=== PATIENT | female | born 1940 | race Caucasian/White ===

== ENCOUNTER → 2016-10-20 | Day surgery (SDC) | payer MEDICARE, BC ==
[2016-10-15 09:45] VITALS: BMI 30.9
[~2016-10-20] MED LIST: BSS 500 ml-Vancomycin 10 mg-Phenylephrine 1 mg Irrigation IR ONE; CHONDROITIN SULFATE 0.5 ML/PFS INTRAOC ONE; DEXAMETHASONE 4 MG/ML VIAL IV PRN; DIAZEPAM 5 MG TAB PO PRN; FENTANYL 100 MCG/2 ML VIAL IV PRN; FENTANYL 100 MCG/2 ML VIAL ONE; HYDROCODONE 5 MG/ACETAMIN 325 MG TAB PO PRN; Hyaluronate Sodium (Provisc) 5.5 mg/0.55 ml syringe INTRAOC ONE; KETOROLAC TROMETH 30 MG/ML VIAL IV PRN; LABETALOL 20 MG/4 ML SYRINGE IV PRN; LR 1,000 ML IV ONE; LR 1,000 ML IV SCH; MIDAZOLAM 2 MG/2 ML VIAL ONE; NS 1,000 ML IV SCH; NS 250 ML IV SCH; ONDANSETRON HCL 4 MG/2 ML VIAL IV PRN; PHENYLEPHRINE 2.5% OPHTH SOLN 2 ML BOT OP EYE ONE; SCOPOLAMINE TRANSDERMAL PATCH TOP PRN; TETRACAINE 0.5% 2 ML OPHTH SOLN OP EYE ONE; TETRACAINE 0.5% 2 ML OPHTH SOLN OP EYE PRN; TROPICAMIDE 1% OPHTH SOLN 2 ML BOTTLE OP EYE ONE; Vancomycin 10 MG, Phenylephrine 1,000 MCG in Balanced Salt Solution 500 ML IO ONE; hydrALAZINE 20 MG/ML VIAL IV PRN
--- NOTE | 2016-10-20 10:38 | SC.ANESEVA ---
Anesthesia Eval & Plan ([facility]) - Providers Stated Procedure: right eye cataract surgery Surgeon:: Bonita Evangelista - Medications/Allergies Allergies: Allergies No Known Allergies Allergy (Verified 10/16/16 13:36) Home Medications: Home Medication List Aspirin [Anjali Children's Aspirin] 81 mg PO DAILY 10/15/16 [History] Biotin 1,000 mcg PO DAILY 10/15/16 [History] Calcium Carbonate [Tums] 1 tab PO TID PRN 10/15/16 [History] Chlorthalidone 25 mg PO DAILY 10/15/16 [History] Folic Acid/Multivit-Minerals [Women's Multivitamin Gummies] 200 mcg PO DAILY [History] Lisinopril [Zestril] 20 mg PO DAILY 10/15/16 [History] Metoprolol Succinate [Toprol Xl] 25 mg PO DAILY 10/15/16 [History] Metoprolol Succinate [Toprol Xl] 100 mg PO DAILY 10/15/16 [History] Pravastatin Sodium [Pravachol] 40 mg PO HS 10/15/16 [History] Spironolactone [Aldactone] 25 mg PO DAILY 10/15/16 [History] Turmeric Root Extract [Turmeric] 500 mg PO DAILY 10/15/16 [History] Current Medication List: Reviewed - Focused Physical Exam NPO since: after Midnight Mallampati: Class II Neck: Full Range of Motion Cardiovascular/Chest: Normal Respiratory: Lungs clear Prone to Motion Sickness: No Other: Diagnoses AGE-RELATED NUCLEAR CATARACT, RIGHT EYE (10/20/16) Allergies Allergy/AdvReac Type Severity Reaction Status Date / Time No Known Allergies Allergy Verified 10/16/16 13:36 Home Medications Medication Instructions Recorded Last Taken Type Aspirin [Anjali Children's Aspirin] 81 mg PO DAILY 10/15/16 Unknown History Biotin 1,000 mcg PO DAILY 10/15/16 Unknown History Calcium Carbonate [Tums] 1 tab PO TID PRN 10/15/16 Unknown History Chlorthalidone 25 mg PO DAILY 10/15/16 Unknown History Folic Acid/Multivit-Minerals 200 mcg PO DAILY 10/15/16 Unknown History [Women's Multivitamin Gummies] Lisinopril [Zestril] 20 mg PO DAILY 10/15/16 Unknown History Metoprolol Succinate [Toprol Xl] 25 mg PO DAILY 10/15/16 Unknown History Metoprolol Succinate [Toprol Xl] 100 mg PO DAILY 10/15/16 Unknown History Pravastatin Sodium [Pravachol] 40 mg PO HS 10/15/16 Unknown History Spironolactone [Aldactone] 25 mg PO DAILY 10/15/16 Unknown History Turmeric Root Extract [Turmeric] 500 mg PO DAILY 10/15/16 Unknown History Height and Weight Patient's height 5 ft 4 in Patient's weight 81.82 kg Weight (Calculated Kilograms) 81.820 BMI 30.9 - Anesthetic Plan Anesthesia Type: MAC ASA Class: 3 - Focused Review of Systems Cardiac History: Yes: Hx Hypertension, Hx Pacemaker, Hx Internal Defibrillator, Hx Cardia Arrhythmia, Hx Abnormal Cholesterol/Hyperlipidemia, Hx Congestive Heart Failure Respiratory: Yes: Hx Sleep Apnea (possible awaiting sleep study) Gastrointestinal: Yes: Hx Colonoscopy No: Hx Gastrointestinal Disorders Smoking Status: Never smoker Surgical History: Yes: T&A (1959)
[2016-10-20 10:53] VITALS: TEMP 97.6
--- NOTE | 2016-10-20 12:02 | HIMOPRPT ---
DATE OF PROCEDURE: 10/20/16 PREOPERATIVE DIAGNOSIS: Cataract right eye. POSTOPERATIVE DIAGNOSIS: Cataract right eye. PROCEDURE: Cataract extraction by phacoemulsification of the right eye SURGEON: Bonita Evangelista MD. ANESTHESIA: IV Sedation/Topical. COMPLICATIONS: None. PRE-OPERATIVE EVALUATION: The patient has been examined and deemed medically stable for cataract extraction with no apparent need for inpatient observation; outpatient setting is appropriate. Patient appears to be oriented to time, place and person. PROCEDURE IN DETAIL: The correct eye confirmed by patient, doctor, staff and paperwork. The operative eye was then marked by the doctor in the preoperative area. Eye drops were instilled into the operative eye to dilate the pupil. The patient was transported to the operating room and was placed in the supine position. A time out was performed before the beginning of the procedure. The operative eye was prepped and draped in the usual sterile fashion for ophthalmic surgery, taking care to isolate the lashes from the surgical field. Topical anesthetic drops were instilled into the operative eye. A lid speculum was placed. Betadine 5% was instilled in the operative eye for antiseptic. Microscope was brought into place for use throughout the case. The eye was inspected. A paracentesis incision was created with a side port knife. The temporal limbal corneal incision was performed with a liz blade. Viscoelastic was injected into the anterior chamber. Capsule forceps were used to create a capsulorhexis. Hydrodissection was performed with BSS. The nucleus was removed by phacoemulsification. Phaco time is noted below. The remaining cortical material was removed by I&A. The capsular bag was noted to be intact and distended with viscoelastic. The Intraocular lens was placed into the intact bag and centered without difficulty. The remaining viscoelastic was removed by I&A. Betadine 5% drops were placed to inspect wound and for antisepsis. Inspection revealed watertight wounds. The lid speculum was removed. Postoperative medications were instilled into the eye and a shield secured over the operative eye. IOL Type [id number] SN [id number] IOL Power 24.00 CDE 5.58 Discharge Summary: There were no complications and the patient was taken to the postoperative area in good condition. Postoperative instructions and outpatient follow up time were given.
[2016-10-20 12:15] VITALS: BP 103/65; PULSE 71
--- NOTE | 2016-10-20 12:27 | SC.ANESPOS ---
Post-Anesthesia Note LOC: Fully Awake Post-Anesthesia Assessment: Awake, Returned to Baseline, Hemodynamically Stable , Pain Control Adequate Phase I & II Recovery Complete: Yes Apparent Anesthesia Complication: No : N - Vital Signs Blood Pressure: 103/65 Pulse: 71 Resp Rate: 17 O2 Sat: 97 Temp: 97.6 F
== END ==
LOC: CPSC 09:18
PROVIDERS: ATTEND Ophthalmology
PROC: 08RJ3JZ Replacement of Right Lens with Synthetic Substitute, Percutaneous Approach (ICD-10-PCS; principal; 2016-10-20 12:00)
DX: H25.11 Age-related nuclear cataract, right eye (principal); I10 Essential (primary) hypertension; I50.9 Heart failure, unspecified; E78.5 Hyperlipidemia, unspecified; G47.30 Sleep apnea, unspecified; M19.90 Unspecified osteoarthritis, unspecified site; Z95.0 Presence of cardiac pacemaker
CPT/HCPCS: 66984; A9270; J2250; J3010; V2632; J3490